=== PATIENT | female | born 1965 | race Caucasian/White ===

== ENCOUNTER 2022-09-12 17:46 | Inpatient (IN) | payer BC ==
[2022-09-12 20:13] LABS: Troponin I 0.316 ng/mL (< 0.028)
[2022-09-12] MEDS ORDERED: Morphine 2 MG/ML VIAL SLOW IVP PRN (20:25)
[2022-09-12] MEDS ORDERED: Acetaminophen 325 MG TAB PO PRN (20:47)
[2022-09-12] MEDS ORDERED: Ondansetron PF 4 MG/2 ML Vial IVP PRN (20:47)
[2022-09-12] MEDS ORDERED: Acetaminophen 650 MG Suppository PR PRN (20:47)
[2022-09-12] MEDS ORDERED: Ondansetron ODT 4 MG TAB PO PRN (20:47)
[2022-09-12 21:40] VITALS: BMI 34.0
[2022-09-12] MEDS: Ibuprofen 800 MG TAB PO PRN (21:53)
[2022-09-12] MEDS: Colchicine 0.6 MG TAB PO SCH (21:53)
[2022-09-12] MEDS: Morphine 4 MG/ML VIAL SLOW IVP PRN (22:05)
[2022-09-12 23:44] LABS: Critical Call Chem Troponin I RESULT DECREASING; Troponin I 0.218 ng/mL (< 0.028)
[2022-09-13 02:44] LABS: #Eosinphils 0.1 thou/uL (0.0-0.7); #Lymphocytes 2.4 thou/uL (1.20-3.40); #Monocytes 1.1 thou/uL (0.11-0.59); #Neutrophils 6.5 thou/uL (1.40-6.50); %Basophils 0.2 % (0.0-1.0); %Eosinophils 0.8 % (0.0-10.0); %Lymphocytes 23.5 % (21.0-51.0); %Neutrophils 64.6 % (42.0-75.0); Hemoglobin 11.9 g/dL (12.0-16.0); Mean Corpuscular HGB CONC 34.8 g/dL (32.0-36.0); Mean Corpuscular Hemoglobin 31.1 pg (27.0-31.0); Mean Corpuscular Volume 89.5 fl (78.0-98.0); Mean Platelet Volume 8.3 fL (7.4-10.4); Platelet Count 197 10x3/uL (130-400); RBC Distribution Width 12.5 % (11.5-14.5); Red Blood Cell (RBC) Count 3.81 mill/uL (4.20-5.40)
[2022-09-13 03:30] LABS: Anion Gap 16 mmol/L (10-20); BUN (Urea Nitrogen) 14 mg/dL (9.8-20.1); Calc. Creatinine Clearance 121 mL/min (70-130); Calcium 8.4 mg/dL (7.8-10.44); Carbon Dioxide 19 mmol/L (22-29); Chloride 105 mmol/L (98-107); Estimated GFR 87; Glucose 93 mg/dL (70-105); Potassium 3.6 mmol/L (3.5-5.1); Sodium 136 mmol/L (136-145)
[2022-09-13 03:38] LABS: Troponin I 0.175 ng/mL (< 0.028)
[2022-09-13] MEDS: Ibuprofen 800 MG TAB PO PRN ×2 (06:02→17:23)
[2022-09-13] MEDS: Colchicine 0.6 MG TAB PO SCH ×2 (08:34→21:22)
[2022-09-13] MEDS ORDERED: Diltiazem HCl 125 MG, Admixture Fee 1 EACH in Sodium Chloride 0.9% 100 ML IVPB SCH (16:30)
[2022-09-13] MEDS: Morphine 4 MG/ML VIAL SLOW IVP PRN (21:22)
[2022-09-13] MEDS ORDERED: Amiodarone 150 MG, Admixture Fee 1 EACH in Dextrose 5% in Water 100 ML IVPB SCH (23:59)
[2022-09-14] MEDS: Amiodarone 450 MG, Admixture Fee 1 EACH in Dextrose 5% in Water 250 ML IVPB SCH ×2 (01:00→11:47)
[2022-09-14 01:17] LABS: ALT (SGPT) 33 U/L (8-55); AST (SGOT) 18 U/L (5-34); Albumin 3.2 g/dL (3.5-5.0); Alkaline Phosphatase 77 U/L (40-110); Bilirubin, Direct 0.4 mg/dL (0.1-0.3); Magnesium 1.8 mg/dL (1.6-2.6)
[2022-09-14 04:05] LABS: Bilirubin, Total 0.7 mg/dL (0.2-1.2)
[2022-09-14] MEDS: Colchicine 0.6 MG TAB PO SCH ×2 (11:52→20:35)
[2022-09-15] MEDS: Morphine 4 MG/ML VIAL SLOW IVP PRN (02:34)
[2022-09-15 08:46] LABS: Anion Gap 13 mmol/L (10-20); BUN (Urea Nitrogen) 12 mg/dL (9.8-20.1); Calc. Creatinine Clearance 135 mL/min (70-130); Calcium 8.6 mg/dL (7.8-10.44); Carbon Dioxide 21 mmol/L (22-29); Chloride 107 mmol/L (98-107); Estimated GFR 98; Glucose 101 mg/dL (70-105); Potassium 3.7 mmol/L (3.5-5.1); Sodium 137 mmol/L (136-145)
[2022-09-15] MEDS: Colchicine 0.6 MG TAB PO SCH ×2 (08:57→21:15)
[2022-09-15] MEDS: Amiodarone 450 MG, Admixture Fee 1 EACH in Dextrose 5% in Water 250 ML IVPB SCH (10:00)
[2022-09-16] MEDS: Amiodarone 450 MG, Admixture Fee 1 EACH in Dextrose 5% in Water 250 ML IVPB SCH (03:51)
[2022-09-16] MEDS: Ibuprofen 800 MG TAB PO PRN (08:21)
[2022-09-16] MEDS: Colchicine 0.6 MG TAB PO SCH ×2 (08:21→18:33)
[2022-09-16] MEDS ORDERED: Amiodarone 200 MG TAB PO SCH ×2 (12:00→21:00)
[2022-09-16 15:31] VITALS: BP 134/72; TEMP 97.8
== END 2022-09-16 18:50 | disposition home or self-care (01) | DRG 315 ==
LOC: ERS 17:46 → 2NO 19:35
PROVIDERS: ADMIT Student in an Organized Health Care Education/Training Program; ATTEND Internal Medicine
DX: I30.9 Acute pericarditis, unspecified (principal); I47.1 Supraventricular tachycardia; I48.92 Unspecified atrial flutter; J90 Pleural effusion, not elsewhere classified; K76.0 Fatty (change of) liver, not elsewhere classified; I48.91 Unspecified atrial fibrillation; R16.1 Splenomegaly, not elsewhere classified; E66.9 Obesity, unspecified; Z68.34 Body mass index [BMI] 34.0-34.9, adult; Z90.710 Acquired absence of both cervix and uterus
CPT/HCPCS: 36415; 80048; 80076; 83036; 83735; 84443; 84484; 85025; 87633; 93005; 93306; J0282; J2270; J3490; J7070

== ENCOUNTER 2022-10-06 12:50 | Emergency (ER) | payer BC ==
[2022-10-06 13:36] LABS: #Eosinphils 0.1 thou/uL (0.0-0.7); #Lymphocytes 2.4 thou/uL (1.20-3.40); #Monocytes 1.1 thou/uL (0.11-0.59); #Neutrophils 6.1 thou/uL (1.40-6.50); %Basophils 0.1 % (0.0-1.0); %Eosinophils 0.7 % (0.0-10.0); %Lymphocytes 24.5 % (21.0-51.0); %Monocytes 11.5 % (0.0-10.0); %Neutrophils 63.3 % (42.0-75.0); Hemoglobin 13.8 g/dL (12.0-16.0); Mean Corpuscular HGB CONC 33.1 g/dL (32.0-36.0); Mean Corpuscular Hemoglobin 29.2 pg (27.0-31.0); Mean Corpuscular Volume 88.2 fl (78.0-98.0); Mean Platelet Volume 8.7 fL (7.4-10.4); Platelet Count 212 10x3/uL (130-400); RBC Distribution Width 13.6 % (11.5-14.5); Red Blood Cell (RBC) Count 4.73 mill/uL (4.20-5.40); White Blood Cell (WBC) Count 9.7 10x3/uL (4.8-10.8)
[2022-10-06 13:57] LABS: ALT (SGPT) 53 U/L (8-55); AST (SGOT) 30 U/L (5-34); Albumin 4.1 g/dL (3.5-5.0); Alkaline Phosphatase 81 U/L (40-110); Anion Gap 14 mmol/L (10-20); BUN (Urea Nitrogen) 15 mg/dL (9.8-20.1); Calc. Creatinine Clearance 0 mL/min (70-130); Calcium 9.9 mg/dL (7.8-10.44); Carbon Dioxide 25 mmol/L (22-29); Estimated GFR 87; Globulin 3.5 g/dL (2.4-3.5); Glucose 114 mg/dL (70-105); Lipase 20 U/L (8-78); Protein, Total 7.6 g/dL (6.0-8.3); Sodium 139 mmol/L (136-145)
[2022-10-06 14:06] LABS: Chloride 104 mmol/L (98-107)
[2022-10-06] MEDS ORDERED: Ketorolac Tromethamine 30 MG/ML VIAL ONE (15:13)
== END 2022-10-06 16:58 | disposition home or self-care (01) ==
LOC: ERS 12:50
DX: R07.89 Other chest pain (principal)
CPT/HCPCS: 36415; 71045; 80053; 83690; 84484; 85025; 93005; 96372; J1885